=== PATIENT | female | born 1940 | race Caucasian/White ===

== ENCOUNTER → 2019-03-21 | Outpatient (CLI) | payer MEDICARE, OTHER ==
[2019-03-21 17:37] LABS: CLARITY,URINE CLOUDY; COLOR,URINE YELLOW
[2019-03-21 17:43] LABS: BILIRUBIN,URINE NEGATIVE (NEGATIVE); GLUCOSE, URINE (UA) NEGATIVE (NEGATIVE); KETONES,URINE NEGATIVE (NEGATIVE); LEUKOCYTE ESTERASE ,URINE NEGATIVE (NEGATIVE); NITRITE,URINE NEGATIVE (NEGATIVE); PROTEIN,URINE NEGATIVE (NEGATIVE)
[2019-03-21 17:44] LABS: BACTERIA,URINE FEW /HPF; SQUAMOUS EPITHELIAL CELL,UR TNTC /HPF; YEAST,URINE MODERATE /HPF
== END ==
LOC: LAB FS 17:01
PROVIDERS: ATTEND Family Medicine
DX: R41.0 Disorientation, unspecified (principal)
CPT/HCPCS: 81000; 87088

== ENCOUNTER → 2019-11-09 | Outpatient (CLI) | payer MEDICARE, OTHER ==
--- NOTE | 2019-11-09 10:18 | Diagnostic Imaging Report ---
INDICATION: Right ankle pain. TIME OF EXAM: 9:53 AM Multiple views of the right ankle were obtained. There appears to be generalized soft tissue swelling present. Ankle mortise is maintained. Talar dome is smooth. No fracture or dislocation is seen. There is a large plantar calcaneal spur. IMPRESSION: Soft tissue swelling. No acute bony abnormality is detected. Dictated by: Dictated on workstation # [id number]
== END ==
LOC: RAD 09:35
PROVIDERS: ATTEND Nurse Practitioner
DX: M25.471 Effusion, right ankle (principal)
CPT/HCPCS: 73610

== ENCOUNTER → 2019-12-05 | Outpatient (CLI) | payer MEDICARE, OTHER | LOC: WOUNDCARE 12:00 | PROVIDERS: ATTEND Surgery | DX: L89.514 Pressure ulcer of right ankle, stage 4 (principal); G20 Parkinson's disease; M24.551 Contracture, right hip; R54 Age-related physical debility | CPT/HCPCS: 99212 ==

== ENCOUNTER → 2019-12-12 | Outpatient (CLI) | payer MEDICARE, OTHER | LOC: WOUNDCARE 09:30 | PROVIDERS: ATTEND Surgery | DX: I96 Gangrene, not elsewhere classified (principal); L89.514 Pressure ulcer of right ankle, stage 4; M24.551 Contracture, right hip; G20 Parkinson's disease; R54 Age-related physical debility ==

== ENCOUNTER → 2019-12-18 | Outpatient (CLI) | payer MEDICARE, OTHER | LOC: WOUNDCARE 10:10 | PROVIDERS: ATTEND Surgery | DX: I96 Gangrene, not elsewhere classified (principal); L89.514 Pressure ulcer of right ankle, stage 4; G20 Parkinson's disease; M24.551 Contracture, right hip; R54 Age-related physical debility; M62.3 Immobility syndrome (paraplegic) | CPT/HCPCS: 99213 ==

== ENCOUNTER → 2019-12-25 | Outpatient (CLI) | payer MEDICARE, OTHER | LOC: WOUNDCARE 08:00 | PROVIDERS: ATTEND Surgery | DX: I96 Gangrene, not elsewhere classified (principal); L89.514 Pressure ulcer of right ankle, stage 4; M24.551 Contracture, right hip; M62.3 Immobility syndrome (paraplegic); G20 Parkinson's disease; R54 Age-related physical debility ==

== ENCOUNTER → 2020-01-01 | Outpatient (CLI) | payer MEDICARE, OTHER | LOC: WOUNDCARE 10:30 | PROVIDERS: ATTEND Surgery | DX: I96 Gangrene, not elsewhere classified (principal); L89.514 Pressure ulcer of right ankle, stage 4; M24.551 Contracture, right hip; G20 Parkinson's disease; M62.3 Immobility syndrome (paraplegic); R54 Age-related physical debility | CPT/HCPCS: 11042; A6197; G0463 ==

== ENCOUNTER → 2020-01-09 | Outpatient (CLI) | payer MEDICARE, OTHER | LOC: WOUNDCARE 11:00 | PROVIDERS: ATTEND Surgery | DX: L89.514 Pressure ulcer of right ankle, stage 4 (principal); G20 Parkinson's disease; M24.551 Contracture, right hip; M62.3 Immobility syndrome (paraplegic); I96 Gangrene, not elsewhere classified; R54 Age-related physical debility ==

== ENCOUNTER → 2020-02-27 | Outpatient (CLI) | payer MEDICARE, OTHER | LOC: WOUNDCARE 14:00 | PROVIDERS: ATTEND Surgery | DX: I96 Gangrene, not elsewhere classified (principal); L89.514 Pressure ulcer of right ankle, stage 4; L89.154 Pressure ulcer of sacral region, stage 4; M24.551 Contracture, right hip; M62.3 Immobility syndrome (paraplegic); G20 Parkinson's disease; R54 Age-related physical debility ==

== ENCOUNTER → 2020-03-13 | Outpatient (CLI) | payer MEDICARE, OTHER | LOC: WOUNDCARE 11:45 | PROVIDERS: ATTEND Surgery | DX: I96 Gangrene, not elsewhere classified (principal); L89.514 Pressure ulcer of right ankle, stage 4; L89.150 Pressure ulcer of sacral region, unstageable; G20 Parkinson's disease; M24.551 Contracture, right hip; M62.3 Immobility syndrome (paraplegic) ==

== ENCOUNTER → 2020-03-28 | Outpatient (CLI) | payer MEDICARE, OTHER | LOC: WOUNDCARE 13:00 | PROVIDERS: ATTEND Orthopaedic Surgery Hand Surgery | DX: L89.514 Pressure ulcer of right ankle, stage 4 (principal); L89.150 Pressure ulcer of sacral region, unstageable; G20 Parkinson's disease; M24.551 Contracture, right hip; M62.3 Immobility syndrome (paraplegic); I96 Gangrene, not elsewhere classified ==

== ENCOUNTER → 2020-04-04 | Outpatient (CLI) | payer MEDICARE, OTHER | LOC: WOUNDCARE 09:15 | PROVIDERS: ATTEND Orthopaedic Surgery Hand Surgery | DX: I96 Gangrene, not elsewhere classified (principal); L89.514 Pressure ulcer of right ankle, stage 4; L89.150 Pressure ulcer of sacral region, unstageable; G20 Parkinson's disease; M24.551 Contracture, right hip; M62.3 Immobility syndrome (paraplegic) ==

== ENCOUNTER → 2020-04-08 | Outpatient (CLI) | payer MEDICARE, OTHER | LOC: WOUNDCARE 15:10 | PROVIDERS: ATTEND Surgery | DX: I96 Gangrene, not elsewhere classified (principal); L89.150 Pressure ulcer of sacral region, unstageable; G20 Parkinson's disease; M24.551 Contracture, right hip; M62.3 Immobility syndrome (paraplegic) | CPT/HCPCS: 11042 ==

== ENCOUNTER → 2020-04-18 | Outpatient (CLI) | payer MEDICARE, OTHER | LOC: WOUNDCARE 09:00 | PROVIDERS: ATTEND Orthopaedic Surgery Hand Surgery | DX: I96 Gangrene, not elsewhere classified (principal); L89.150 Pressure ulcer of sacral region, unstageable; G20 Parkinson's disease; M24.551 Contracture, right hip; M62.3 Immobility syndrome (paraplegic) ==

== ENCOUNTER → 2020-05-01 | Outpatient (CLI) | payer MEDICARE, OTHER | LOC: WOUNDCARE 10:36 | PROVIDERS: ATTEND Surgery | DX: I96 Gangrene, not elsewhere classified (principal); L89.154 Pressure ulcer of sacral region, stage 4; G20 Parkinson's disease; M24.551 Contracture, right hip; M62.3 Immobility syndrome (paraplegic) | CPT/HCPCS: 11043; 87070; 87077; 87186; 87205; G0463 ==

== ENCOUNTER → 2020-05-01 | Outpatient (CLI) | payer MEDICARE, OTHER ==
[2020-05-01 12:03] LABS: BASOPHILS # (AUTO) 0.1 10^3/uL (0.0-0.1); BASOPHILS % (AUTO) 1 % (0-10); EOSINOPHILS # (AUTO) 0.3 10^3/uL (0.0-0.3); EOSINOPHILS % (AUTO) 2 % (0-10); HEMATOCRIT 39 % (35-52); HEMOGLOBIN 11.9 g/dL (11.5-16.0); LYMPHOCYTES # (AUTO) 2.3 10^3/uL (1.0-4.0); LYMPHOCYTES % (AUTO) 16 % (12-44); MEAN CORPUSCULAR HEMOGLOBIN 30 pg (25-34); MEAN CORPUSCULAR HGB CONC 31 g/dL (32-36); MEAN CORPUSCULAR VOLUME 97 fL (80-99); MEAN PLATELET VOLUME 10.2 fL (9.0-12.2); MONOCYTES # (AUTO) 0.7 10^3/uL (0.0-1.0); MONOCYTES % (AUTO) 5 % (0-12); NEUTROPHILS # (AUTO) 10.7 10^3/uL (1.8-7.8); NEUTROPHILS % (AUTO) 76 % (42-75); PLATELET COUNT 304 10^3/uL (130-400); WHITE BLOOD COUNT 14.1 10^3/uL (4.3-11.0)
[2020-05-01 12:19] LABS: ANISOCYTOSIS SLIGHT; BAND NEUTROPHILS 0 %; BASOPHILS % (MANUAL) 1 %; EOSINOPHILS % (MANUAL) 3 %; LYMPHOCYTES % (MANUAL) 14 %; MONOCYTES % (MANUAL) 4 %; NEUTROPHILS % (MANUAL) 78 %
--- NOTE | 2020-05-01 12:25 | Diagnostic Imaging Report ---
Pelvis at 12:07. Indication: Stage IV sacral ulcer AP and lateral views of the pelvis were obtained. There are no prior studies available for comparison. There is no fracture, dislocation or acute bony abnormality identified. The lateral view does show a 1.1 x 1.9 cm area of diminished density in the subcutaneous fat along the posterior margin of the lower sacrum. This may be related to patient's reported sacral ulcer. There is no clear evidence for bony destruction in this region to suggest osteomyelitis. However if further study is desired, MRI would be recommended. 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 The soft tissues are unremarkable otherwise. Impression: 1. The area of low density in the soft tissues posterior to the lower sacrum most likely correspond to the patient's reported sacral ulcer. There is no bony destruction to suggest osteomyelitis. Even so, if further study is desired, MRI would be recommended. 2. There is no acute bony abnormality appreciated otherwise. Dictated by: Dictated on workstation # [id number]
[2020-05-01 12:26] LABS: ERYTHROCYTE SEDIMENTATION RATE 39 MM/HR (0-30)
[2020-05-01 12:30] LABS: ALANINE AMINOTRANSFERASE < 6 U/L (0-55); ALBUMIN 3.3 GM/DL (3.2-4.5); ALKALINE PHOSPHATASE 70 U/L (40-136); BILIRUBIN,TOTAL 0.4 MG/DL (0.1-1.0); BUN/CREATININE RATIO 25; CALCIUM 9.2 MG/DL (8.5-10.1); CARBON DIOXIDE 26 MMOL/L (21-32); CHLORIDE 105 MMOL/L (98-107); CREATININE SERUM 0.75 MG/DL (0.60-1.30); GFR ESTIMATED > 60; GLUCOSE 94 MG/DL (70-105); POTASSIUM 3.6 MMOL/L (3.6-5.0); SODIUM 140 MMOL/L (135-145); TOTAL PROTEIN 7.1 GM/DL (6.4-8.2)
== END ==
LOC: RAD 11:47
PROVIDERS: ATTEND Surgery
DX: L89.154 Pressure ulcer of sacral region, stage 4 (principal); G20 Parkinson's disease; M24.551 Contracture, right hip; M62.3 Immobility syndrome (paraplegic); E44.1 Mild protein-calorie malnutrition
CPT/HCPCS: 36415; 72170; 80053; 84134; 85007; 85027; 85652; 86141

== ENCOUNTER → 2020-05-07 | Outpatient (CLI) | payer MEDICARE, OTHER | LOC: WOUNDCARE 10:17 | PROVIDERS: ATTEND Surgery | DX: L89.154 Pressure ulcer of sacral region, stage 4 (principal); G20 Parkinson's disease; M24.551 Contracture, right hip; M62.3 Immobility syndrome (paraplegic); E44.1 Mild protein-calorie malnutrition; I96 Gangrene, not elsewhere classified | CPT/HCPCS: 11042; G0463 ==

== ENCOUNTER → 2020-05-16 | Outpatient (CLI) | payer MEDICARE, OTHER | LOC: WOUNDCARE 09:15 | PROVIDERS: ATTEND Orthopaedic Surgery Hand Surgery | DX: I96 Gangrene, not elsewhere classified (principal); L89.154 Pressure ulcer of sacral region, stage 4; G20 Parkinson's disease; M24.551 Contracture, right hip; M62.3 Immobility syndrome (paraplegic); E44.1 Mild protein-calorie malnutrition ==

== ENCOUNTER → 2020-05-22 | Outpatient (CLI) | payer MEDICARE, OTHER | LOC: WOUNDCARE 09:18 | PROVIDERS: ATTEND Orthopaedic Surgery Hand Surgery | DX: I96 Gangrene, not elsewhere classified (principal); L89.154 Pressure ulcer of sacral region, stage 4; G20 Parkinson's disease; M24.551 Contracture, right hip; M62.3 Immobility syndrome (paraplegic); E44.1 Mild protein-calorie malnutrition; R19.7 Diarrhea, unspecified | CPT/HCPCS: 11042; A6197; G0463 ==